=== PATIENT | female | born 1940 | race Caucasian/White ===

== ENCOUNTER 2016-08-16 22:45 | Emergency (ER) | payer BC, MEDICARE ==
--- NOTE | ~2016-08-16 | ER ---
PATIENT'S NAME: CAMRYN BLANCHARD [facility] AGE: 75 Y [address] ROOM: [place] [id number] LOCATION: [facility] ADMIT DATE: 08/16/2016 ER/Outpatient Report DISCHARGE DATE: FAMILY PHYSICIAN: Baldomero Calvo MD ATTENDING PHYSICIAN: Shivam Jj Admission date and time documented in medical record. I saw the patient at 2300 hours. CHIEF COMPLAINT: Laceration. HISTORY OF PRESENT ILLNESS: The patient is a 75-year-old female, who suffered a laceration to her right lateral lower leg. It happened about an hour prior to admission to the emergency room. She thinks that as her dog jumped on her, his claws cut her. She suffered a skin tear. HOME MEDICATIONS: See attached medication list. ALLERGIES: NONE. SOCIAL HISTORY: Nonsmoker, nondrinker. SIGNIFICANT PAST MEDICAL HISTORY: Hypertension, peptic ulcer disease, deep vein thrombosis, pulmonary embolism. REVIEW OF SYSTEMS: All systems reviewed by me are negative with the exception of those discussed in the history of present illness. PHYSICAL EXAMINATION: VITAL SIGNS: Temperature 98.1, pulse 65, respirations 16, blood pressure 151/67, O2 saturation on room air is 96%. SKIN: The patient has a V-shaped 6 cm laceration of the lateral mid right lower leg. Neurovascularly intact. Pulse intact. Bleeding controlled. Wound was cleansed with normal saline. 1% Xylocaine was used for local infiltration of anesthesia. Wound was closed in simple fashion with 4-0 Ethilon suture. Wound was cleansed and dressed. IMPRESSION: PATIENT'S NAME: CAMRYN BLANCHARD [facility] AGE: 75 Y [address] ROOM: [place] [id number] LOCATION: [facility] ADMIT DATE: 08/16/2016 ER/Outpatient Report DISCHARGE DATE: FAMILY PHYSICIAN: Baldomero Calvo MD ATTENDING PHYSICIAN: Shivam Jj A 6 cm laceration, right lateral mid lower leg, with simple closure. PLAN: The patient dismissed home. Observation. Activity as tolerated. Keep wound clean. Watch for infection. Dress daily. Continue present home medications and care. Follow up with personal physician in 10 to 14 days for suture removal or sooner if needed. Discussion ensued with the patient concerning my findings and recommendations, she understands. MD BENJAMIN BIRCH/elie /[id number] d: 08/17/16 0003 t: 08/25/16 1826, OUTPATIENT REPORT
[~2016-08-16 22:45] MED LIST: ASPIRIN LO-DOSE81 MG PO; BISOPROLOL-HCT1 EACH PO; BUMETANIDE2 MG PO; COZAAR100 MG PO; K-TAB 10MEQ10 MEQ PO; LYSINE1000 MG PO; PRILOSEC20 MG PO; TYLENOL/COD#3**1 TAB PO; WELLBUTRIN XL300 M2 PO; XARELTO15 MG PO; XARELTO20 MG PO
== END 2016-08-16 23:26 | disposition disaster alternative care site (69) ==
LOC: GACC 22:45
PROC: 0HQKXZZ Repair Right Lower Leg Skin, External Approach (ICD-10-PCS; principal; 2016-08-16)
DX: S81.811A Laceration without foreign body, right lower leg, initial encounter (principal); I10 Essential (primary) hypertension; Z79.02 Long term (current) use of antithrombotics/antiplatelets; Z86.718 Personal history of other venous thrombosis and embolism; W54.1XXA Struck by dog, initial encounter